=== PATIENT | male | born 1945 | race Caucasian/White ===

== ENCOUNTER 2016-09-24 08:29 | Inpatient (IN) ==
[2016-09-24 09:25] LABS: INR 1.14; PROTIME 12.1 Seconds (9.2-11.7); PTT 36.9 Seconds (22.0-36.0)
[2016-09-24] MEDS ORDERED: DEMEROL ONE (10:51)
--- NOTE | 2016-09-24 10:51 | Diag Imaging Result Doc PS360 ---
EXAM: CHEST-2 VIEWS HISTORY: POST BIOPSY LT LUNG TECHNIQUE: Inspiratory expiratory AP upright at 1030 COMMENT: There is a small (less than 10%) left pneumothorax following CT-guided biopsy of the left upper lobe. This measures 2.5 cm in the apex. A follow-up radiographic series is to be obtained at 1300. IMPRESSION: Small left pneumothorax. The findings were discussed with Bert Gonsales MD at 09/24/2016 10:49 AM. Electronically signed by Cyrus Medeiros 09/24/2016 10:49 AM
[2016-09-24] MEDS ORDERED: NS 1,000 ML ONE (10:52)
--- NOTE | 2016-09-24 10:56 | Diag Imaging Result Doc PS360 ---
EXAM: CT GUIDED BIOPSY LUNG HISTORY: l-UPPER LOBE MASS TECHNIQUE: CT-guided biopsy of the left upper lobe COMMENT: The risks and benefits of the procedure were discussed with the patient including the possibility of bleeding, infection, reaction to lidocaine, or pneumothorax. He agreed to the procedure. Following sterile preparation of the skin anterolaterally on the left over the area of the mass, and administration 1% lidocaine to the skin and deeper soft tissues, a 20-gauge coaxial Temno core biopsy needle was employed to obtain three cores from the lesion. There is a nearly immediate small pneumothorax seen on the left. Otherwise, there are no immediate complications. IMPRESSION: Successful CT-guided biopsy of the left upper lobe complicated with small pneumothorax. This has been previously communicated to . Electronically signed by Cyrus Medeiros 09/24/2016 10:54 AM
--- NOTE | 2016-09-24 13:13 | Diag Imaging Result Doc PS360 ---
EXAM: CHEST-2 VIEWS HISTORY: POST OP LUNG BX INSPIR, EXPIR TECHNIQUE: Inspiratory expiratory chest at 1300 COMMENT: The left apical pneumothorax which was demonstrated previously at 1030 is actually slightly smaller at 22 mm on the inspiration view, however the expiration view and makes this is slightly larger at nearly 34 mm. The inspiratory and expiratory radiographs are not consistent, however. Further follow-up at 1600 is to be obtained. IMPRESSION: Apparently stable left pneumothorax. Clinically, the patient feels better than at the time of the first set of radiographs. Further follow-up at 1600 to be performed. Electronically signed by Cyrus Medeiros 09/24/2016 1:11 PM
--- NOTE | 2016-09-24 16:30 | Diag Imaging Result Doc PS360 ---
EXAM: CHEST-2 VIEWS HISTORY: post lung biopsy TECHNIQUE: Inspiratory expiratory chest radiograph at 1620 COMMENT: The left apical pneumothorax has decreased markedly in size measuring less than 13 mm on the expiratory image compared to over 2.1 cm on the inspiratory image at 1300. This is clearly improved. No pleural fluid collections are present. IMPRESSION: Improved left pneumothorax. Electronically signed by Cyrus Medeiros 09/24/2016 4:27 PM
[2016-09-24] MEDS: XANAX PO PRN (19:44)
[2016-09-24] MEDS: WELLBUTRIN XL PO SCH (21:16)
[2016-09-24] MEDS: NORCO-10 PO PRN (21:16)
[2016-09-25] MEDS: NORCO-10 PO PRN ×2 (06:39→21:39)
[2016-09-25] MEDS: PROTONIX PO SCH ×2 (06:39→06:58)
--- NOTE | 2016-09-25 08:41 | Diag Imaging Result Doc PS360 ---
EXAM: CHEST-2 VIEWS HISTORY: post thoracentesis TECHNIQUE: AP inspiratory and expiratory sitting chest, two views COMMENT: The left apical pneumothorax which was present on the previous examination of 09/24/2016 at 1620 has increased in size and measured on the expiration view is now 3.2 cm in thickness compared to 1.3 cm previously. The expiratory view is actually more expanded than on the previous examination. The pneumothorax measures 3 cm on the inspiration view. IMPRESSION: Increasing volume of left pneumothorax since the previous studies at 1620 on 09/24/2016. Electronically signed by Cyrus Medeiros 09/25/2016 8:39 AM
[2016-09-25] MEDS ORDERED: ZOFRAN IV PRN (09:08)
[2016-09-25] MEDS: ZOFRAN IV PRN ×2 (09:33→21:41)
[2016-09-25] MEDS ORDERED: DURAGESIC 12 MICROGM/HR PATCH TD SCH (11:00)
[2016-09-25] MEDS: WELLBUTRIN XL PO SCH ×2 (11:10→21:40)
[2016-09-25 11:39] LABS: MANUAL DIFF NEEDED? NO
[2016-09-25 11:46] LABS: BASO% 0.5 % (0.0-0.8); EOS# 0.26 X1000 (0.0-0.7); EOS% 2.9 % (0.0-10.0); HEMATOCRIT 28.3 % (42.0-52.0); HEMOGLOBIN 8.7 g/dL (14.0-18.0); IMM GRAN# 0.03 X1000 (0.0-0.04); IMM GRAN% 0.3 % (0.0-0.5); LYMPH# 1.04 X1000 (1.2-3.4); LYMPH% 11.8 % (20.5-51.1); MCH 25.6 PG (27-31); MCHC 30.7 g/dL (33-37); MCV 83.2 FL (81-99); MONO# 0.82 X1000 (0.11-0.59); MONO% 9.3 % (1.7-9.3); MPV 10.1 FL (7.4-10.4); NEUT% 75.2 % (42.2-75.2); PLT 422 X1000 (130-400)
[2016-09-25 12:28] LABS: AGAP 14; ALBUMIN 2.7 g/dL (3.5-5.0); ALKALINE PHOSPHATASE 258 U/L (32-122); BUN 13 mg/dL (8-22); CALCIUM 8.7 mg/dL (8.8-10.2); CHLORIDE 94 mmol/L (98-107); COSMO 270; GOT 20 U/L (10-34); GPT 45 U/L (10-44); POTASSIUM 4.4 mmol/L (3.5-5.1); SODIUM 132 mmol/L (136-145); TCO2 24 mmol/L (25-35); TOTAL BILIRUBIN 0.36 mg/dL (0.20-1.00); TOTAL PROTEIN 6.8 g/dL (6.3-8.3)
--- NOTE | 2016-09-25 13:54 | Diag Imaging Result Doc PS360 ---
EXAM: CHEST-2 VIEWS HISTORY: pneumothorax TECHNIQUE: AP and lateral chest COMMENT: The apical pneumothorax on the left has not changed appreciably since the previous study at 0830. The pneumothorax measures 3.2 cm compared to 3.5 cm on the inspiratory view of the previous series. IMPRESSION: Stable or slightly improved left pneumothorax. Electronically signed by Cyrus Medeiros 09/25/2016 1:51 PM
[2016-09-25] MEDS: XANAX PO PRN (18:40)
[2016-09-25] MEDS: NICODERM PATCH TD SCH (21:40)
[2016-09-26] MEDS: PROTONIX PO SCH (06:49)
--- NOTE | 2016-09-26 07:09 | Diag Imaging Result Doc PS360 ---
EXAM: CHEST-PORTABLE HISTORY: pneumo TECHNIQUE: AP portable at 0500 COMMENT: The left apical pneumothorax has continued to decrease in volume now measuring less than 15 mm compared to 3.2 cm on the previous study of 09/25/2016. IMPRESSION: Improving left pneumothorax. Electronically signed by Cyrus Medeiros 09/26/2016 7:06 AM
[2016-09-26] MEDS: NORCO-10 PO PRN (07:59)
[2016-09-26] MEDS: NICODERM PATCH TD SCH (08:00)
[2016-09-26] MEDS: WELLBUTRIN XL PO SCH ×2 (08:00→22:49)
[2016-09-26] MEDS: ZOFRAN IV PRN ×2 (09:08→18:56)
--- NOTE | 2016-09-26 15:15 | CONSULTATION ---
DATE OF CONSULTATION: 09/26/2016 REASON FOR CONSULTATION: Left-sided pneumothorax. HISTORY OF PRESENT ILLNESS: This is a 71-year-old male who recently underwent percutaneous CT- guided lung biopsy for the mass on the left side on a 09/24/2016. He was subsequently admitted because of an iatrogenic pneumothorax. He had some chest pain and shortness of breath over the first day or so; however, overnight he says his chest pain has resolved. He does not feel short of breath. He feels much better. PAST MEDICAL HISTORY: Anxiety, chronic pain in his neck from disk disease or stenosis. Former smoker. Gastroesophageal reflux disease. PAST SURGICAL HISTORY: None pertinent. HOME MEDICATIONS: Xanax, Sharon, Protonix, and Wellbutrin. ALLERGIES: No known drug allergies. SOCIAL HISTORY: He is a smoker and has been trying to quit. He drinks alcohol occasionally. FAMILY HISTORY: Reviewed and noncontributory. REVIEW OF SYSTEMS: Ten systems reviewed and negative, except as noted above. PHYSICAL EXAMINATION: Vital Signs: Temperature 98.3 degrees, pulse 78, respirations 18, blood pressure 125/70, O2 saturation 98% on room air. General: He is a well-developed, well-nourished, in no acute distress. Looks his stated age. HEENT: Normocephalic, atraumatic. Extraocular muscles intact. Pupils equal, round, reactive to light. Sclerae anicteric. Moist mucous membranes. Neck: Supple. No thyromegaly. Lymphatic: No supraclavicular, periumbilical, or axillary nodes appreciated. Cardiovascular: Regular rate and rhythm. Respiratory: Clear with equal breath sounds bilaterally. Gastrointestinal: Soft, nontender, nondistended. No organomegaly or mass. Extremities: No clubbing, cyanosis, or edema. Skin: Warm and dry. No rash. LABORATORY: CBC and complete metabolic profile reviewed and notable for an alkaline phosphatase of 258. IMAGING: Multiple chest x-rays have been reviewed over his admission showing the left-sided pneumothorax; however, this morning's x-ray shows continued improvement with it now measuring 1.5 cm compared to 3.2 cm yesterday. ASSESSMENT/PLAN: A 71-year-old male with iatrogenic left pneumothorax after lung biopsy. It appears to be resolving. The patient is asymptomatic over the past 48 hours. His pneumothorax has waxed and waned a little, but appears to be improving overall. This may take some time to completely resolve and it may be reasonable to discharge him today given his lack of symptoms and the very small stable size of this pneumothorax/ he has been instructed to return to emergency room urgently for any increasing chest pain or shortness of breath. cc: MD Bert Hernández MD
[2016-09-26] MEDS: XANAX PO PRN (18:56)
[2016-09-26] MEDS ORDERED: SODIUM CHLORIDE 0.9% INJ PRN (20:39)
[2016-09-26] MEDS ORDERED: PHENERGAN PO PRN (20:41)
[2016-09-26] MEDS: PHENERGAN IV PRN (21:01)
[2016-09-27 08:25] VITALS: BP 114/85
[2016-09-27] MEDS: PHENERGAN IV PRN (08:26)
--- NOTE | 2016-09-27 08:42 | HISTORY AND PHYSICAL ---
CHIEF COMPLAINT: Pneumothorax. HISTORY OF PRESENT ILLNESS: Mr. Dean is a very pleasant, 71-year-old male who is known to Dr. Gonsales with a history of a large left upper lobe mass with possible mediastinal lymphadenopathy recently diagnosed. The patient also has a history of COPD, gastroesophageal reflux disease, dyslipidemia, depression and anxiety. The patient was referred for CT-guided biopsy of the lung mass and suffered a pneumothorax for which she is admitted to [facility]. The patient reports mild to moderate pain and has minimal shortness of breath. He is currently on room air with an oxygen saturation of 100%. PAST MEDICAL HISTORY: As in HPI. PAST SURGICAL HISTORY: None. SOCIAL HISTORY: The patient smokes 1-1/2 pack cigarettes daily since the age of 10. He does not use alcohol or illicit drugs. FAMILY HISTORY: Negative for any hematologic or oncologic problems. MEDICATIONS ON ADMISSION: 1. Flomax. 2. [place]. 3. Protonix. 4. Wellbutrin. 5. Xanax. ALLERGIES: The patient has no known drug allergies. REVIEW OF SYSTEMS: A 14 point review of systems was obtained and is negative except as mentioned in HPI. PHYSICAL EXAMINATION: Mr. Roberto Carlos Dean is a 71-year-old, male, lying supine in bed in no immediate distress. VITAL SIGNS: Temperature 97.9 degrees, blood pressure 118/67, heart rate 80, respirations 20, O2 saturation is 99% on room air. HEENT: Normocephalic, atraumatic. Mucous membranes are pink and moist. Sclerae is anicteric. Extraocular movements intact. NECK: Supple. LUNGS: Clear to auscultation bilaterally with decreased breath sounds in the left upper lobe. CV: S1, S2 is heard without murmur, rub or gallop. ABDOMEN: Soft, nondistended, nontender. Bowel sounds positive all quadrants. No rebound or guarding noted. EXTREMITIES: Without clubbing, cyanosis, or edema. DERMATOLOGIC: No rashes, bruises or lesions. NEUROLOGIC: The patient is awake, alert, and oriented x3. He has no focal motor deficit at this time. LABORATORY DATA: Currently pending. Imaging studies chest x-ray reveals increasing volume of left pneumothorax since the previous study on 09/24/2016. ASSESSMENT AND PLAN: 1. Large left upper lobe mass with mediastinal lymphadenopathy. Status post CT-guided biopsy of mass with pneumothorax. We will consult Dr. Vail of surgery to follow along in case pneumothorax worsens and in case the patient needs intervention. We will obtain a chest x-ray in the morning. 2. Anemia. We will obtain a CBC and transfuse if hemoglobin is less than 8.0. We will continue to monitor. 3. Elevated alkaline phosphatase. Questionably secondary to bone involvement. 4. Pain. We will add a fentanyl 12.5 mcg patch every 3 days. Additionally, we will continue [place] 10 mg q.8 h p.r.n. 5. We will make further recommendations pending outcomes. This is Maria C Phillip dictating a note on Roberto Carlos Dean for Dr. Bert Gonsales. The above reflects the history exam, assessment and plan of Dr. Gonsales. Dictated by RUTH aMrtinez for Bert Gonsales MD cc: RUTH Martinez MD
[2016-09-27 09:50] LABS: MANUAL DIFF NEEDED? NO
[2016-09-27 09:53] LABS: BASO% 0.3 % (0.0-0.8); EOS# 0.27 X1000 (0.0-0.7); EOS% 2.7 % (0.0-10.0); HEMATOCRIT 31.8 % (42.0-52.0); HEMOGLOBIN 9.6 g/dL (14.0-18.0); IMM GRAN# 0.03 X1000 (0.0-0.04); IMM GRAN% 0.3 % (0.0-0.5); LYMPH# 1.22 X1000 (1.2-3.4); LYMPH% 12.2 % (20.5-51.1); MCHC 30.2 g/dL (33-37); MCV 82.8 FL (81-99); MONO# 1.11 X1000 (0.11-0.59); MONO% 11.1 % (1.7-9.3); MPV 9.9 FL (7.4-10.4); NEUT% 73.4 % (42.2-75.2); PLT 446 X1000 (130-400); RBC 3.84 XMIL (4.7-6.1)
[2016-09-27] MEDS: NICODERM PATCH TD SCH (11:26)
[2016-09-27 11:32] LABS: IRON SATURATION 13 %; TIBC 139 ug/dL; TOTAL IRON 18 ug/dL (53-167); UNBOUND IRON 121 ug/dL (112-346)
[2016-09-27 11:33] LABS: AGAP 15; BUN 11 mg/dL (8-22); CALCIUM 9.7 mg/dL (8.8-10.2); CHLORIDE 93 mmol/L (98-107); COSMO 272; GPT 38 U/L (10-44); SODIUM 135 mmol/L (136-145); TCO2 27 mmol/L (25-35); TOTAL PROTEIN 7.9 g/dL (6.3-8.3)
[2016-09-27 11:42] LABS: ALBUMIN 3.7 g/dL (3.5-5.0); ALKALINE PHOSPHATASE 276 U/L (32-122); GOT 17 U/L (10-34); POTASSIUM 4.2 mmol/L (3.5-5.1); TOTAL BILIRUBIN 0.31 mg/dL (0.20-1.00)
[2016-09-27] MEDS ORDERED: PROTONIX PO SCH (18:00)
== END 2016-09-27 11:34 | disposition home or self-care (01) ==
LOC: 3N 08:29 → OPS 08:29
PROVIDERS: ADMIT Internal Medicine Hematology & Oncology; ATTEND Internal Medicine Hematology & Oncology